=== PATIENT | male | born 1950 | race Caucasian/White ===

== ENCOUNTER 2024-03-25 05:36 | Inpatient (IN) | payer OTHER ==
[~2024-03-25] VITALS: Ht 172.7 cm; Wt 88.1 kg
[2024-03-25] VITALS (13 sets, daily range): BP systolic 115–145; BP diastolic 67–87
[~2024-03-25 05:36] MED LIST: ATOR20 PO; Children's Clari5 MG PO; Hytrin2 MG PO; LISI5 PO; METF500C PO; SILD50TA PO; SIME80CH PO; THERA-D2000 UNIT PO; VERAMYST; VITAMIN B121000 MCG PO
[2024-03-25] MEDS ORDERED: MetroNIDAZOLE 500MG/NS 100 ml 100 ML IV SCH ×2 (06:15→16:00)
[2024-03-25] MEDS ORDERED: CeFAZolin Sodium 2,000 MG in NS 100 ML IV SCH ×2 (06:15→16:00)
[2024-03-25] MEDS ORDERED: Lactated Ringer's 1,000 ML IV SCH ×2 (06:15→11:25)
[2024-03-25] MEDS ORDERED: Acetaminophen 500 MG Tab PO SCH (06:15)
[2024-03-25] MEDS ORDERED: Ketorolac Tromethamine 30mg Vial ONE (07:55)
[2024-03-25] MEDS ORDERED: Ondansetron HCl 2 MG / ML 2ML Vial ONE (07:55)
[2024-03-25] MEDS ORDERED: propofoL 20 ML IV ONE (07:55)
[2024-03-25] MEDS ORDERED: Rocuronium Bromide 10 MG/ML 5ML Injection IV ONE (07:55)
[2024-03-25] MEDS ORDERED: Dexamethasone Sod Phos 10 MG/ML 1ML VIAL ONE (07:55)
[2024-03-25] MEDS ORDERED: FentaNYL Citrate 50 MCG/ML 2 ML Injection ONE (07:56)
--- NOTE | 2024-03-25 07:56 | NUR ---
DSU NOTE PT A&OX4, BREATHING RA, VSS, NO COMPLAINTS. ALL BELONGINGS INCLUDING GLASSES AND DENTURES TO PACU. Ambulatory in Day Surgery Patient confirms NPO status and agrees with scheduled surgery. Pre-Op teaching done. Pt verbalizes understanding.
[2024-03-25] MEDS ORDERED: Ropivacaine 0.5% HCl/Pf 5 MG/ML 20ML VIAL ONE (08:01)
[2024-03-25] MEDS ORDERED: Bupivacaine 0.5% Inj 10 ML Vial ONE (08:30)
[2024-03-25] MEDS ORDERED: Indocyanine Green 25 MG Vial ONE (08:51)
[2024-03-25] MEDS ORDERED: Indocyanine Green 25 MG Vial IV ONE (08:55)
[2024-03-25] MEDS ORDERED: HYDROmorphone HCl/Pf 1MG SYR ONE (08:55)
[2024-03-25] MEDS ORDERED: Ondansetron HCl 2 MG / ML 2ML Vial IV PRN (11:25)
[2024-03-25] MEDS ORDERED: FentaNYL Citrate 50 MCG/ML 2 ML Injection IV PRN (11:25)
[2024-03-25] MEDS ORDERED: Acetaminophen 325 MG TABLET PO SCH (12:00)
--- NOTE | 2024-03-25 12:57 | NUR ---
PT ARRIVED TO THE ROOM FROM PACU AT APPROXIMATELY 1210. PT A&O, HE IS ABLE TO MOVE ALL EXTREMITIES. PT DENIES PAIN. BOWEL SOUNDS ACTIVE X4 QUADRANTS. LEANNA DRESSING C/D/I. PT EDUCATED TO USE CALL LIGHT, CALL LIGHT WITHIN REACH. VSS.
--- NOTE | 2024-03-25 16:49 | NUR ---
SHIFT SUMMARY PT IS POD#0. PT HAS DENIED PAIN POST-OP. PT IS TOLERATING SIPS AND CHIPS. HE REPORTS PASSING FLATUS. LEONORA IS A 1 ASSIST FOR HELP WITH LINES AND TUBES WHEN OOB. ABD BINDER IN PLACE FOR COMFORT. LEANNA DRESSING FUNCTIONING APPROPRIATELY. PT USES CALL LIGHT APPROPRIATELY.
[2024-03-25] MEDS ORDERED: Doxazosin Mesylate 2 MG Tab PO SCH (21:00)
[2024-03-26 00:23] VITALS: BP 101/68
[2024-03-26 04:19] VITALS: BP 97/54
[2024-03-26 06:29] LABS: BASOPHILS ABSOLUTE AUTO 0.01 K/mm3 (0.00-0.23); BASOPHILS PERCENT AUTO 0 % (0-2); EOSINOPHILS PERCENT AUTO 0 % (0-6); Hematocrit 36.5 % (37.0-53.0); Hemoglobin 12.3 g/dL (13.5-17.5); IMMATURE GRAN ABSOLUTE AUTO 0.03 K/mm3 (0.00-0.10); IMMATURE GRAN PERCENT AUTO 0 % (0-1); LYMPHOCYTES PERCENT AUTO 14 % (21-46); MONOCYTES ABSOLUTE AUTO 1.02 K/mm3 (0.16-1.47); MONOCYTES PERCENT AUTO 9 % (4-13); Mean Corpuscular HGB 31.5 pg (26.0-34.0); Mean Corpuscular HGB Conc 33.7 g/dL (31.5-36.5); Mean Corpuscular Volume 94 fL (80-100); Mean Platelet Volume 10.3 fL (9.1-12.4); NEUTROPHILS ABSOLUTE AUTO 8.58 K/mm3 (1.96-9.15); NEUTROPHILS PERCENT AUTO 77 % (41-73); Platelet Count 194 K/mm3 (150-400); RDW Coefficient Variation 12.2 % (11.7-14.2); RDW Standard Deviation 41.8 fL (35.1-46.3); White Blood Cell Count 11.14 K/mm3 (4.00-11.30)
--- NOTE | 2024-03-26 06:42 | NUR ---
SHIFT SUMMARY PT HAS RESTED T/O THE NIGHT. SURGICAL SITE WNL, SLIGHT DRAINAGE NOTED ON LEANNA, UNCHANGED FROM SHIFT CHANGE ASSESSMENT. PT REPORTS MINIMAL PAIN T/O THE NIGHT. NO COMPLAINTS OF NAUSEA. POST OP VITALS STABLE. RUIZ IN PLACE, [place] OUTPUT. BED IN LOWEST POSITION, CALL LIGHT WITHIN REACH.
[2024-03-26 06:51] LABS: Calcium, Blood 8.3 mg/dL (8.5-10.1); Creatinine, Blood 0.75 mg/dL (0.60-1.20); Potassium, Blood 3.8 mmol/L (3.5-5.5)
[2024-03-26 07:09] VITALS: BP 107/70
[2024-03-26] MEDS ORDERED: Loratadine 10 MG Tab PO SCH (09:00)
[2024-03-26] MEDS ORDERED: Lisinopril 5 MG Tab PO SCH (09:00)
[2024-03-26] MEDS ORDERED: Atorvastatin 10 MG Tab PO SCH (09:00)
[2024-03-26] MEDS ORDERED: Enoxaparin 40 MG/0.4 ML SYR SC SCH (09:00)
[2024-03-26] MEDS ORDERED: Cyanocobalamin 500 MCG Tab PO SCH (09:00)
[2024-03-26] MEDS ORDERED: Lactated Ringer's 1,000 ML IV SCH (09:30)
[2024-03-26 10:54] VITALS: BP 122/67
[2024-03-26 15:17] VITALS: BP 115/72
--- NOTE | 2024-03-26 16:44 | NUR ---
SHIFT SUMMARY PT IS POD#1. PAIN HAS BEEN MANAGED WITH TYLENOL THIS SHIFT. PT IS INDEPENDENT WHEN AMBULATING. ABD DRESSING HAS INCREASED DRAINAGE, DR. MARTIN NOTIFIED. PT TOLERATING CLEAR LIQUIDS, PLAN TO ADVANCE TO FULL LIQUID FOR DINNER. PT USES CALL LIGHT APPROPRIATELY.
--- NOTE | 2024-03-26 17:45 | NUR ---
DR. MARTIN CHANGED LEANNA DRESSING. DRESSING APPEARS TO BE FUNCTIONING PROPERLY AFTER CHANGE.
[2024-03-26 22:01] VITALS: BP 121/74
[2024-03-27 03:11] VITALS: BP 123/71
--- NOTE | 2024-03-27 04:49 | NUR ---
SHIFT SUMMARY POD 3 LAP TO OPEN R HEMICOLECTOMY PT RESTED DURING THE NIGHT. PAIN MANAGED PER EMAR. PT TOLERATING PO INTAKE, VOIDING WELL. LEANNA TO MIDLINE IS DRY AND INTACT, HAS SANGINEOUS DRAINAGE ON THE DRESSING. PT AMB IND IN THR ROOM, TAKING WALKS. VSS. NO OTHER CONCERNS AT THIS TIME, CALL LIGHT WITHIN REACH
[2024-03-27 07:35] VITALS: BP 130/84
[2024-03-27 14:25] VITALS: BP 150/75
--- NOTE | 2024-03-27 18:27 | NUR ---
PT IS STABLE POST OP DAY #3 FOR HEMICOLECTOMY. PT CHRISTY FL DIET WITHOUT NAUSEA. PT STILL HAS SIGNIFICANT BLOATING. PT PASSING FLATUS. WALKING THE HALLWAYS FREQUENTLY. DENIES PAIN. CONT SCHEDULED TYLENOL. PT VOIDING WELL. NO BM. PT HAD SHOWER THIS AFTERNOON. LEANNA DRESSING MIDLINE WITH SMALL AMT DRY DRAINAGE. IV S.L AND ABX DC'D. PT USES CALL LIGHT APPROPRIATELY. PLAN FOR DC HOME IN THE NEXT 1-2 DAYS.
[2024-03-27 19:31] VITALS: BP 148/72
[2024-03-28 04:47] VITALS: BP 141/79
--- NOTE | 2024-03-28 05:07 | NUR ---
SHIFT SUMMARY POD 4 LAP TO OPEN R HMEICOLECTOMY PT ABLE TO REST ALL NIGHT. PAIN MANAGED PER EMAR. PT TOLERATING FULL LIQUID DIET. PASSIGN GAS, NO BM. VOIDING. VSS. LEANNA TO MIDLINE IS DRY AND INTACT, HAS SOME DRAINANGE. NO OTHER CONCERNS AT THIS TIME, CALL LIGHT WIHTIN REACH
[2024-03-28 07:41] VITALS: BP 134/89
[2024-03-28 14:10] VITALS: BP 132/80
--- NOTE | 2024-03-28 16:48 | NUR ---
SHIFT SUMMARY POD 4 R HEMICOLECTOMY PT AMBULATING FREQUENTLY IN THE HALLWAYS, DENIES PAIN T/O SHIFT. DRESSING REMAINS CDI WITH SMALL AMOUNT DRY SEROSANGUINOUS DRAINAGE ON BANDAGE. PASSING FLATUS, DENIES BOWEL MOVEMENTS. TOELRATING DIET WELL, NO NAUSEA.
[2024-03-28 19:21] VITALS: BP 142/72
[2024-03-29 04:36] VITALS: BP 133/74
--- NOTE | 2024-03-29 07:09 | NUR ---
SHIFT SUMMARY NO ACUTE CHANGES NOTED OVER NIGHT, A&O X4, RA, VSS, DENIES PAIN, ABD BINDER IN PLACE, DRSG INTACT, CHRISTY PO, VOIDING WNL, CALL LIGHT IN REACH, REPORT GIVEN TO MANDI SAUL
[2024-03-29 07:53] VITALS: BP 128/71
--- NOTE | 2024-03-29 10:37 | NUR ---
DISCHARGE POD 5 CHINTAN COLECTOMY PT AMBULATING FREQUENTLY IN HALLS, PASSING GAS. BOWEL MOVEMENT REPORTED. DENIES PAIN DURING SHIFT. ABDOMINAL BINDER IN PLACE. ALL INSTRUCTIONS GONE OVER WITH PATIENT. ALL QUESTIONS ANSWERED. DRESSING REMAINS CDI. EXTRA MEDIPORE DRESSINGS PROVIDED FOR PATIENT COMFORT. PT ELECTED TO AMBULATE OUT ON HIS OWN.
== END 2024-03-29 11:14 | disposition home or self-care (01) | DRG 330 ==
LOC: MEDS 05:36 → SURS 05:36 → PRE IP 07:30 → SURS 11:59
PROVIDERS: ADMIT Surgery
PROC: 0DJD4ZZ Inspection of Lower Intestinal Tract, Percutaneous Endoscopic Approach (ICD-10-PCS; 2024-03-25)
PROC: 8E0W4CZ Robotic Assisted Procedure of Trunk Region, Percutaneous Endoscopic Approach (ICD-10-PCS; 2024-03-25)
PROC: 0DTF0ZZ Resection of Right Large Intestine, Open Approach (ICD-10-PCS; principal; 2024-03-25 08:00)
DX: D12.0 Benign neoplasm of cecum (principal); Q43.3 Congenital malformations of intestinal fixation; K63.89 Other specified diseases of intestine; N40.0 Benign prostatic hyperplasia without lower urinary tract symptoms; I87.2 Venous insufficiency (chronic) (peripheral); E11.9 Type 2 diabetes mellitus without complications; I10 Essential (primary) hypertension; E78.5 Hyperlipidemia, unspecified; F10.11 Alcohol abuse, in remission; Z53.31 Laparoscopic surgical procedure converted to open procedure; Z86.19 Personal history of other infectious and parasitic diseases; Z79.84 Long term (current) use of oral hypoglycemic drugs; Z79.899 Other long term (current) drug therapy; Z87.891 Personal history of nicotine dependence
CPT/HCPCS: 36415; 80048; 82947; 85025; 86850; 86900; 86901; 88307; A9270; J0690; J1100; J1170; J1650; J1885; J2405; J2704; J2795; J3010; J7120